=== PATIENT | male | born 1945 | race Caucasian/White ===

== ENCOUNTER → 2017-03-06 | Outpatient (CLI) | payer MEDICARE ==
[~2017-03-06] VITALS: Ht 182.9 cm; Wt 97.5 kg
[~2017-03-06] MED LIST: /WARF25TA; ACET65TA; AMLO5TAB; ASCO25TA PO; ASPI1TAB PO; ASPI81TA7 PO; BABY81CH PO; CALC500T49 PO; CALC500T51 PO; CELE-19 PO; CELE100C; COUM2.5T11 PO; FERR325T; FLOM5CAP PO; HYDR25TAB PO; HYZAAR 100/25; LOSA100T36 PO; MULTCAP PO; MULTIVIT PO; NS 1,000 ML IV ONE; OMEP20TA7; OMEP40CA2 PO; PERC5TAB6 PO; PERC5TAB8; PROBCAP4 PO; PROPOFOL 200 MG/20 ML VIAL As Ordered ONE; TAMS0.4C2 PO; VICO5TAB16 PO; VITA10002 PO; VITA500T; [UNRECOGNIZED DRUG - OTHER]; non PO
--- NOTE | 2017-03-06 09:05 | ROOR ---
Patient Name: Minh Rosales Procedure Date: 03/06/2017 8:38 AM Date of : 1945 Age: 71 Room: [facility] Gender: Male Note Status: Finalized Procedure: Total Colonoscopy to Cecum Indications: Screening for colorectal malignant neoplasm, Last colonoscopy 10 years ago Providers: Samuel Barboza MD Referring MD: Samuel Bartholomew MD Requesting Provider: Medicines: Monitored Anesthesia Care Complications: No immediate complications. Procedure: Pre-Anesthesia Assessment: - The heart rate, respiratory rate, oxygen saturations, blood pressure, adequacy of pulmonary ventilation, and response to care were monitored throughout the procedure. The Colonoscope was introduced through the anus and advanced to the cecum, identified by appendiceal orifice and ileocecal valve. The colonoscopy was performed without difficulty. The patient tolerated the procedure well. The quality of the bowel preparation was good. Findings: The perianal and digital rectal examinations were normal. Non-bleeding internal hemorrhoids were found during retroflexion. The hemorrhoids were small and Grade I (internal hemorrhoids that do not prolapse). Multiple small and large-mouthed diverticula were found in the recto-sigmoid colon, sigmoid colon and descending colon. The exam was otherwise without abnormality on direct and retroflexion views. Impression: - Non-bleeding internal hemorrhoids. - Diverticulosis in the recto-sigmoid colon, in the sigmoid colon and in the descending colon. - The examination was otherwise normal on direct and retroflexion views. - No specimens collected. - The exam was otherwise normal to the cecum. Recommendation: - Patient has a contact number available for emergencies. The signs and symptoms of potential delayed complications were discussed with the patient. Return to normal activities tomorrow. Written discharge instructions were provided to the patient. - High fiber diet. - Discharge patient to home. - Continue present medications. - Repeat colonoscopy [day] for symptoms only. - Return to referring physician. - The findings and recommendations were discussed with the patient's family. Samuel Barboza MD Samuel Barboza MD 03/06/2017 9:04:38 AM This report has been signed electronically. Number of Addenda: 0 Note Initiated On: 03/06/2017 8:38 AM Estimated Blood Loss: Estimated blood loss: none.
[2017-03-06 09:25] VITALS: BP 121/72
== END | disposition home or self-care (01) ==
LOC: M OPP 07:32
PROVIDERS: ATTEND Internal Medicine Gastroenterology
DX: Z12.11 Encounter for screening for malignant neoplasm of colon (principal); K64.0 First degree hemorrhoids; K57.30 Diverticulosis of large intestine without perforation or abscess without bleeding; I10 Essential (primary) hypertension; M19.90 Unspecified osteoarthritis, unspecified site; N40.0 Benign prostatic hyperplasia without lower urinary tract symptoms; Z87.891 Personal history of nicotine dependence; Z88.8 Allergy status to other drugs, medicaments and biological substances; Z79.82 Long term (current) use of aspirin; Z79.899 Other long term (current) drug therapy

== ENCOUNTER 2019-01-26 04:20 | Inpatient (IN) | payer MEDICARE ==
[2019-01-26] VITALS (9 sets, daily range): BP systolic 102–134; BP diastolic 63–72
[~2019-01-26] VITALS: Ht 182.9 cm; Wt 99.9 kg
[~2019-01-26 04:20] MED LIST changes: -/WARF25TA; -ASCO25TA PO; -ASPI1TAB PO; +ASPI1TAB15 PO; +ASPI81TA26 PO; -ASPI81TA7 PO; -CELE-19 PO; +CELE1CAP4 PO; +COUM1TAB18; -COUM2.5T11 PO; +COUM2.5T17 PO; +FLOM0.4C39 PO; -FLOM5CAP PO; +HYDR-2541 PO; -LOSA100T36 PO; +LOSA100T50 PO; -NS 1,000 ML IV ONE; +PERC5TAB12 PO; -PERC5TAB6 PO; -PROPOFOL 200 MG/20 ML VIAL As Ordered ONE; -VICO5TAB16 PO; +VICO5TAB17 PO; +VITA1TAB23 PO
[2019-01-26] MEDS ORDERED: AMLO5TAB6 PO (04:30)
[2019-01-26] MEDS ORDERED: CLON-412 PO (04:30)
[2019-01-26] MEDS ORDERED: CHLO125TA (04:30)
[2019-01-26] MEDS ORDERED: LOSA50TA88 PO (05:06)
[2019-01-26] MEDS ORDERED: CHLO25TA PO (05:06)
[2019-01-26] MEDS ORDERED: VITMTA PO (05:06)
[2019-01-26 05:11] LABS: HEMATOCRIT 38.7 % (42.0-52.0); HEMOGLOBIN 13.5 g/dl (13.5-17.5); MEAN CORPUSCULAR HEMOGLOBIN 30.8 pg (27.0-33.0); MEAN CORPUSCULAR HGB CONC 34.9 g/dl (32.0-36.5); MEAN CORPUSCULAR VOLUME 88.2 fl (80.0-96.0); PLATELET COUNT, AUTOMATED 203 10^3/uL (150-450); RED BLOOD COUNT 4.39 10^6/uL (4.30-6.10)
[2019-01-26] MEDS ORDERED: NITR4TASL SL (05:15)
[2019-01-26 05:23] LABS: INR 1.08; PROTHROMBIN TIME 14.1 SECONDS (12.1-14.4)
[2019-01-26 05:24] LABS: PARTIAL THROMBOPLASTIN TIME 27.5 SECONDS (25.4-37.6)
[2019-01-26 05:37] LABS: ALBUMIN 3.2 GM/DL (3.2-5.2); ALT/SGPT 21 U/L (12-78); BILIRUBIN,DIRECT 0.2 MG/DL (0.0-0.2); BILIRUBIN,TOTAL 0.7 MG/DL (0.2-1.0); BLOOD UREA NITROGEN 19 MG/DL (7-18); CALCIUM LEVEL 8.4 MG/DL (8.8-10.2); CARBON DIOXIDE LEVEL 29 MEQ/L (21-32); CHLORIDE LEVEL 106 MEQ/L (98-107); CREATININE FOR GFR 0.77 MG/DL (0.70-1.30); GLOMERULAR FILTRATION RATE > 60.0 (>42); GLUCOSE, FASTING 110 MG/DL (70-100); LIPASE 67 U/L (73-393); POTASSIUM SERUM 3.3 MEQ/L (3.5-5.1); SODIUM LEVEL 139 MEQ/L (136-145)
[2019-01-26 05:54] LABS: ATYPICAL LYMPH 1 % (0-5); EOSINOPHILS 1 % (0-5); LYMPHOCYTES 24 % (16-52); MONOCYTES 3 % (0-8); NEUTROPHILS 71 % (35-75); PLATELET ESTIMATE NORMAL (NORMAL)
--- NOTE | 2019-01-26 06:00 | HPEPDOC ---
[facility] Medical History & Physical Date of Admission Jan 26, [address] Bartholomew History and Physical CHIEF COMPLAINT: GI bleed HISTORY OF PRESENT ILLNESS: Patient is a 73-year-old male with past medical history of hypertension, ANTHONY, osteoarthritis, history of GI bleed 1.5 years ago status post EGD and colonoscopy with polyps presented to ER with complaints of bleeding per rectum. Patient noted that he started to notice dark stool as well as bright red blood in the stool starting 2 days prior. Since starting it has occurred with every bowel movement. He denies taking any anticoagulation or excessive dose of his Celebrex. He has been following with Dr. Barboza since his previous bleeding episode and had scoped in the recent years. He otherwise denies any fever, chills, abdominal pain or any other symptoms. In the ER, patient was found to have bright red blood with digital rectal exam. Hemoglobin of 13 but bleeding persistent. PAST MEDICAL HISTORY: 1. History of GI bleed treated at [place] 1.5 years prior. 2. Hypertension. 3. ANTHONY. 4. Osteoarthritis. 5. Bladder dysfunction and self catherize 3 times daily. PAST SURGICAL HISTORY: 1. EGD/colonoscopy. 2. Bilateral knee replacement. 3. Bilateral carpal tunnel surgery. 4. Vasectomy. 5. Tonsillectomy. SOCIAL HISTORY: Denies tobacco, alcohol or illicit drug use. FAMILY HISTORY: Mother with diabetes mellitus ALLERGIES: Please see below. REVIEW OF SYSTEMS: 10 point review of system negative except as stated in HPI HOME MEDICATIONS: Please see below. PHYSICAL EXAMINATION: General: No acute distress, Alert Eyes: Normal sclera, EOMI, JORDANA HENT: Atraumatic, neck supple, moist mucous membranes Cardiovascular: Normal rate, normal rhythm. No murmurs appreciated. Pulmonary: Clear to auscultation b/l, no wheezing GI: Soft, nontender, nondistended Skin: Warm and dry Neuro: CN grossly intact. No focal deficits. Strengths equal b/l. Psych: oriented x 3 LABORATORY DATA: See below. MICROBIOLOGY: Please see below. ASSESSMENT AND PLAN: 1. GI bleed - On chronic NSAID for OA but has not been taking higher dose than normal. - hx polyps and GI bleed treated at [place] 1.5 years ago and now follows with Dr. Buckley. - Consult Dr. Barboza. - Monitor serial H/H. Hb now >13 but expect to drop as bleeding intermittently still. - NPO at this time. - Hold any NSAIDs or DVT ppx. SCD only. 2. HTN - Hold home oral meds. - IV antihypertensive PRN. 3. Bladder dysfunction - Self catherize 3 times daily. - Continue with home regimen. 4. OA - Hold NSAIDs at this time. No complaints of pain currently. Patient is high risk due to active GI bleed may require endoscopy. Estimated length of stay 2-3 days with expected disposition home. Vital Signs Vital Signs Date Time Temp Pulse Resp B/P (MAP) Pulse Ox O2 Delivery O2 Flow Rate FiO2 01/26/19 05:07 01/26/19 05:05 53 17 97 Room Air 01/26/19 04:21 97.3 Laboratory Data Labs 24H Laboratory Tests 2 01/26/19 04:55: Nucleated Red Blood Cells % (auto) 0.0, Prothrombin Time 14.1, Prothromb Time International Ratio 1.08, Activated Partial Thromboplast Time 27.5, Anion Gap 4L, Glomerular Filtration Rate > 60.0, Calcium Level 8.4L, Aspartate Amino Transf (AST/SGOT) 17, Alanine Aminotransferase (ALT/SGPT) 21, Alkaline Phosphatase 67, Total Bilirubin 0.7, Direct Bilirubin 0.2, Total Protein 6.0L, Albumin 3.2, Albumin/Globulin Ratio 1.14, Lipase 67L CBC/BMP Laboratory Tests 01/26/19 04:55 Red Blood Count 4.39, Mean Corpuscular Volume 88.2, Mean Corpuscular Hemoglobin 30.8, Mean Corpuscular Hemoglobin Concent 34.9, Red Cell Distribution Width 12.4 Home Medications Scheduled Amlodipine Besylate (Amlodipine Besylate) 5 Mg Tab, 5 MG PO BID Aspirin (Aspirin 81) 81 Mg Tab, 81 MG PO DAILY Celecoxib (Celebrex) 200 Mg Cap, 200 MG PO DAILY Chlorthalidone (Chlorthalidone) 25 Mg Tab, 25 MG PO DAILY Clonidine Hydrochloride (Clonidine HCl) 0.1 Mg Tab, 0.1 MG PO QHS Lactobacillus Acidophilus (Probiotic) 1 Cap Cap, 1 CAP PO DAILY Losartan Potassium (Losartan Potassium) 50 Mg Tab, 50 MG PO BID Multivitamins *[facility] STOCKED* (Thera M Plus *[facility] STOCKED*) 1 Tab Tab, 1 TAB PO DAILY Omeprazole (Omeprazole) 40 Mg Cap, 40 MG PO DAILY Tamsulosin Hydrochloride (Flomax) 0.4 Mg Cap, 0.4 MG PO DAILY Scheduled PRN Nitroglycerin (Nitrostat) 0.4 Mg Subl, 0.4 MG SL Q5MP PRN for CHEST PAIN Allergies Coded Allergies: MS - Oxycodone (Verified Allergy, Unknown, 02/18/17) JEAN-PIERRE JETT MD Jan 26, 2019 06:00
[2019-01-26] MEDS ORDERED: LABETALOL HCL 100 MG/20 ML VIAL IV PRN (06:15)
[2019-01-26] MEDS ORDERED: GOLYTELY SOLN 4000 ML BTL PO ONE (07:00)
[2019-01-26] MEDS ORDERED: NS 1,000 ML IV SCH (07:00)
[2019-01-26] MEDS ORDERED: NITROGLYCERIN 0.4 MG SUBL TABLET SL PRN (07:30)
[2019-01-26] MEDS: POTASSIUM CHLORIDE INJ 20 MEQ in D5W/LR 1,000 ML IV SCH ×2 (08:34→22:24)
[2019-01-26] MEDS: CHLORTHALIDONE 25 MG TAB PO SCH (09:50)
[2019-01-26] MEDS: amLODIPine 5 MG TAB PO SCH ×2 (09:50→20:11)
[2019-01-26] MEDS: LACTOBACILLUS ACIDOPHILUS CAP (BACID) PO SCH (09:50)
[2019-01-26] MEDS: LOSARTAN 50 MG TAB PO SCH ×2 (09:50→20:11)
[2019-01-26] MEDS: TAMSULOSIN 0.4 MG CAP PO SCH (09:51)
[2019-01-26] MEDS: PANTOPRAZOLE 40MG INJ (PROTONIX) (C9113) IV SCH ×2 (09:51→20:11)
[2019-01-26] MEDS: MULTIVITAMINS/MINERALS THERAP 1 TAB PO SCH (09:51)
[2019-01-26] MEDS ORDERED: PROPOFOL 200 MG/20 ML VIAL As Ordered ONE (14:58)
[2019-01-26] MEDS ORDERED: LIDOCAINE 2% INJ 100 MG/5 ML SDV (FOR ANES.) As Ordered ONE (14:58)
--- NOTE | 2019-01-26 15:14 | ROOR ---
Patient Name: Minh Rosales Procedure Date: 01/26/2019 2:57 PM Date of : 1945 Age: 73 Room: [facility] Gender: Male Note Status: Finalized Procedure: Upper Endoscopy + Biopsies Indications: Melena, Gastrointestinal bleeding of unknown origin Providers: Samuel Barboza MD Referring MD: Samuel CRAIG MD Requesting Provider: Medicines: Monitored Anesthesia Care Complications: No immediate complications. Procedure: Pre-Anesthesia Assessment: - The heart rate, respiratory rate, oxygen saturations, blood pressure, adequacy of pulmonary ventilation, and response to care were monitored throughout the procedure. The Endoscope was introduced through the mouth, and advanced to the second part of duodenum. The upper GI endoscopy was accomplished without difficulty. The patient tolerated the procedure well. Findings: The Z-line was irregular and was found 40 cm from the incisors. Multiple biopsies were obtained with cold forceps for evaluation to rule out Sanderson's Esophagus randomly at the gastroesophageal junction. A small hiatal hernia was present. Localized mild inflammation characterized by congestion (edema), erosions, erythema and linear erosions was found in the gastric antrum. Biopsies were taken with a cold forceps for Helicobacter pylori testing. The exam of the duodenum was otherwise normal. Impression: - Z-line irregular, 40 cm from the incisors. - Small hiatal hernia. - Mucosal changes suspicious for gastritis. Biopsied. - Multiple biopsies were obtained at the gastroesophageal junction. - The examination was otherwise normal. Recommendation: - Patient has a contact number available for emergencies. The signs and symptoms of potential delayed complications were discussed with the patient. Return to normal activities tomorrow. Written discharge instructions were provided to the patient. - High fiber diet. - Discharge patient to home. - Follow an antireflux regimen. - Continue present medications. - Await pathology results. - Telephone GI clinic for pathology results in 1 week. - Return to referring physician. - The findings and recommendations were discussed with the patient's family. Samuel Barboza MD Samuel Barboza MD 01/26/2019 3:14:16 PM Electronically signed by Samuel Barboza MD Number of Addenda: 0 Note Initiated On: 01/26/2019 2:57 PM Estimated Blood Loss: Estimated blood loss: none.
--- NOTE | 2019-01-26 15:33 | ROOR ---
Patient Name: Minh Rosales Procedure Date: 01/26/2019 2:56 PM Date of : 1945 Age: 73 Room: [facility] Gender: Male Note Status: Finalized Procedure: Total Colonoscopy to Cecum Indications: Rectal bleeding Providers: Samuel Barboza MD Referring MD: Samuel CRAIG MD Requesting Provider: Medicines: Monitored Anesthesia Care Complications: No immediate complications. Procedure: Pre-Anesthesia Assessment: - The heart rate, respiratory rate, oxygen saturations, blood pressure, adequacy of pulmonary ventilation, and response to care were monitored throughout the procedure. The Colonoscope was introduced through the anus and advanced to the cecum, identified by appendiceal orifice and ileocecal valve. The colonoscopy was performed without difficulty. The patient tolerated the procedure well. The quality of the bowel preparation was fair. Findings: The perianal and digital rectal examinations were normal. Non-bleeding internal hemorrhoids were found during retroflexion. The hemorrhoids were small and Grade I (internal hemorrhoids that do not prolapse). Multiple small and large-mouthed diverticula were found in the entire colon. The exam was otherwise without abnormality on direct and retroflexion views. Impression: - Preparation of the colon was fair. - Non-bleeding internal hemorrhoids. - Diverticulosis in the entire examined colon. - The examination was otherwise normal on direct and retroflexion views. - No specimens collected. - The exam was otherwise normal to the cecum. Recommendation: - Patient has a contact number available for emergencies. The signs and symptoms of potential delayed complications were discussed with the patient. Return to normal activities tomorrow. Written discharge instructions were provided to the patient. - High fiber diet. - Discharge patient to home. - Continue present medications. - Repeat colonoscopy for symptoms only. - Return to referring physician. - The findings and recommendations were discussed with the patient's family. Samuel Barboza MD Samuel Barboza MD 01/26/2019 3:33:07 PM Electronically signed by Samuel Barboza MD Number of Addenda: 0 Note Initiated On: 01/26/2019 2:56 PM Estimated Blood Loss: Estimated blood loss: none.
[2019-01-26] MEDS ORDERED: cloNIDine 0.1 MG TAB PO SCH (21:00)
[2019-01-27 06:06] VITALS: BP 106/64
[2019-01-27] MEDS: LOSARTAN 50 MG TAB PO SCH (09:00)
[2019-01-27 09:01] VITALS: BP 119/67
[2019-01-27] MEDS: amLODIPine 5 MG TAB PO SCH (09:01)
[2019-01-27] MEDS: PANTOPRAZOLE 40MG INJ (PROTONIX) (C9113) IV SCH (09:03)
[2019-01-27] MEDS: MULTIVITAMINS/MINERALS THERAP 1 TAB PO SCH (09:03)
[2019-01-27] MEDS: TAMSULOSIN 0.4 MG CAP PO SCH (09:03)
[2019-01-27] MEDS: CHLORTHALIDONE 25 MG TAB PO SCH (09:03)
[2019-01-27] MEDS: LACTOBACILLUS ACIDOPHILUS CAP (BACID) PO SCH (09:03)
--- NOTE | 2019-01-27 14:31 | DS.PDOC ---
Discharge Summary General Date of Admission Jan 26, 2019 at 05:47 Date of Discharge 01/27/19 Attending Physician: MERCEDEZ GARCIA MD Discharge Summary Patient is a 73-year-old male with past medical history of hypertension, ANTHONY, osteoarthritis, history of GI bleed 1.5 years ago status post EGD and colonoscopy with polyps presented to ER with complaints of bleeding per rectum. Patient noted that he started to notice dark stool as well as bright red blood in the stool starting 2 days prior. Since starting it has occurred with every bowel movement. He denies taking any anticoagulation or excessive dose of his Celebrex. He has been following with Dr. Barboza since his previous bleeding episode and had scoped in the recent years. He otherwise denies any fever, chills, abdominal pain or any other symptoms. In the ER, patient was found to have bright red blood with digital rectal exam. Hemoglobin of 13 but bleeding persistent. PAST MEDICAL HISTORY: 1. History of GI bleed treated at [place] 1.5 years prior. 2. Hypertension. 3. ANTHONY. 4. Osteoarthritis. 5. Bladder dysfunction and self catherize 3 times daily. PAST SURGICAL HISTORY: 1. EGD/colonoscopy. 2. Bilateral knee replacement. 3. Bilateral carpal tunnel surgery. 4. Vasectomy. 5. Tonsillectomy. SOCIAL HISTORY: Denies tobacco, alcohol or illicit drug use. FAMILY HISTORY: Mother with diabetes mellitus ALLERGIES: Please see below. Physical examination: Vitals are stable HEENT: PERRLA Neck: Within normal range Lungs: Clear to A&P Heart: S1, S2, regular Abdomen: Benign Extremities: No clubbing, cyanosis or edema Neurological: Within normal limits. Psych: Normal Hospital course: Admitted and seen by Dr. Barboza. Patient had a GI procedure is done without finding any source of bleeding and has been cleared by GI for discharge Patient's H&H is stable, he will continue on home meds and follow with Dr. Barboza as an outpatient for further information, please refer to patient's chart Condition on discharge stable Time is spent on this discharge was 38 minutes Vital Signs/I&Os Vital Signs Date Time Temp Pulse Resp B/P (MAP) Pulse Ox O2 Delivery O2 Flow Rate FiO2 01/27/19 09:01 58 119/67 01/27/19 06:06 98.5 20 97 01/26/19 06:05 Room Air I&O- Last 24 Hours up to 6 AM 01/27/19 06:00 Intake Total 1242 ml Output Total 1000 ml Balance 242 ml Discharge Medications Scheduled Amlodipine Besylate (Amlodipine Besylate) 5 Mg Tab, 5 MG PO BID, (Reported) Aspirin (Aspirin EC) 81 Mg Tab, 81 MG PO DAILY, (Reported) Celecoxib (Celebrex) 200 Mg Cap, 200 MG PO DAILY, (Reported) Chlorthalidone (Chlorthalidone) 25 Mg Tab, 25 MG PO DAILY, (Reported) Clonidine HCl (Clonidine HCl) 0.1 Mg Tab, 0.1 MG PO QHS, (Reported) Lactobacillus Acidophilus (Probiotic) 1 Cap Cap, 1 CAP PO DAILY, (Reported) Losartan Potassium (Losartan Potassium) 50 Mg Tab, 50 MG PO BID, (Reported) Multivitamins (Thera M Plus Tablet) 1 Tab Tab, 1 TAB PO DAILY, (Reported) Omeprazole (Omeprazole) 40 Mg Cap, 40 MG PO DAILY, (Reported) Tamsulosin HCl (Flomax) 0.4 Mg Cap, 0.4 MG PO DAILY, (Reported) Scheduled PRN Nitroglycerin (Nitrostat) 0.4 Mg Subl, 0.4 MG SL Q5MP PRN for CHEST PAIN, (Reported) Allergies Coded Allergies: oxycodone (Verified Adverse Reaction, Mild, anxiety, 01/26/19) MERCEDEZ GARCIA MD Jan 27, 2019 14:31
== END 2019-01-27 13:30 | disposition home or self-care (01) | DRG 379 ==
LOC: M ED 04:20 → M ED INP 05:47 → M PCU 06:56 → M MSPAV 21:04
PROVIDERS: ADMIT Student in an Organized Health Care Education/Training Program; ATTEND Internal Medicine
PROC: 0DJ08ZZ Inspection of Upper Intestinal Tract, Via Natural or Artificial Opening Endoscopic (ICD-10-PCS; 2019-01-26)
PROC: 0DB58ZX Excision of Esophagus, Via Natural or Artificial Opening Endoscopic, Diagnostic (ICD-10-PCS; principal; 2019-01-26 14:00)
DX: K92.2 Gastrointestinal hemorrhage, unspecified (principal); I10 Essential (primary) hypertension; G47.33 Obstructive sleep apnea (adult) (pediatric); M19.90 Unspecified osteoarthritis, unspecified site; Z96.651 Presence of right artificial knee joint; Z96.652 Presence of left artificial knee joint; Z79.899 Other long term (current) drug therapy; Z88.5 Allergy status to narcotic agent; N31.9 Neuromuscular dysfunction of bladder, unspecified; K44.9 Diaphragmatic hernia without obstruction or gangrene; K64.8 Other hemorrhoids

== ENCOUNTER → 2025-06-26 | Outpatient (REF) | payer MEDICARE ==
[~2025-06-26] MED LIST changes: +AMLO1TAB24 PO; +ASPI-546 PO; -ASPI1TAB15 PO; +CHLO125TA; +CHLO25TA PO; +CLON-412 PO; +CYAN100049 PO; -FLOM0.4C39 PO; +HYDR-3490 PO; -HYDR25TAB PO; +LOSA100T46 PO; -LOSA100T50 PO; +LOSA50TA28 PO; +NITR4TASL SL; -OMEP40CA2 PO; +OMEP40CA4 PO; +TAMS-18 PO; -VITA10002 PO; -VITA1TAB23 PO; +VITA250T20 PO; +VITMTA PO
== END ==
LOC: M WUC 16:51
PROVIDERS: ATTEND Registered Nurse
DX: N39.0 Urinary tract infection, site not specified (principal)